=== PATIENT | female | born 1950 | race Caucasian/White ===

== ENCOUNTER 2016-12-09 12:59 | Emergency (ER) | payer MEDICARE, OTHER | END 2016-12-09 15:30 | disposition home or self-care (01) | LOC: D.ER 12:59 | DX: S02.2XXA Fracture of nasal bones, initial encounter for closed fracture (principal); Y04.2XXA Assault by strike against or bumped into by another person, initial encounter; Y93.89 Activity, other specified; Y92.89 Other specified places as the place of occurrence of the external cause; R51 Headache ==

== ENCOUNTER 2016-12-21 05:06 | Day surgery (SDC) | payer MEDICARE, OTHER ==
[~2016-12-21] VITALS: Ht 162.6 cm; Wt 78.6 kg
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
--- NOTE | ~2016-12-21 | OP ---
PATIENT NAME: ERNA WARE MEDICAL RECORD: [id number] :52 LOCATION:[facility] ADMISSION DATE: SURGEON: RYAN PERRY MD DATE OF OPERATION: 12/21/2016 PREOPERATIVE DIAGNOSIS: Displaced nasal fracture. POSTOPERATIVE DIAGNOSIS: Displaced nasal fracture. PROCEDURE: Closed reduction nasal fracture. SURGEON: Ryan Perry MD ANESTHESIA: General. NASAL PACKING: None. SPLINTS: [place] splint externally. COMPLICATIONS: None. DISPOSITION: Recovery stable. DESCRIPTION OF PROCEDURE: She was brought to the operating room and placed in supine position, sedated by anesthesia. The nose was examined, it was cleaned with alcohol. She has a C-shaped deformity with a nasal dorsum deflected to the left side. The [place] elevator in the right side of the nose and digital manipulation was able to mobilize the fracture and pop the nasal dorsum back over to the right side. Then, with small manipulations, get it back to straight and stable. The skin was then cleaned with Mastisol, Steri-Strips were applied. The nose was carefully checked for reduction. A Larry splint was cut to size and placed. Nose was examined and it was straight and looked good. She was awakened and transported to recovery in good condition. No complications. TRANSINT:[id number] Voice Confirmation ID: [id number] DOCUMENT ID: [id number] RYAN PERRY MD CC: [id number] DICTATION DATE: 12/21/16804 ELECTRICAL WIRING LINEMAN: 12/21/16 1003 REG [facility] [address] [place] [address]
[~2016-12-21 05:06] MED LIST: CELEXA40 MG PO; CYCLOBENZAPRINE10 MG PO; HYDROCODONE-APA1 TAB PO; SUDOGEST30 MG PO; TRAZODONE HCL50 MG PO; VITAMIN D5000 UNIT PO; ZANTAC150 MG PO
[2016-12-21 05:59] LABS: BASOPHILS 0.3 % (0-2); EOSINOPHILS 1.9 % (0-7); HEMATOCRIT 38.7 % (36.0-48.0); HEMOGLOBIN 12.5 g/dL (12-16); IMMATURE GRANULOCYTES 0.3 % (0-5); LYMPHOCYTES 48.1 % (15-50); MCH 27.2 pg (26.0-34.0); MCHC 32.3 g/dL (31.0-37.0); MCV 84.1 fL (80.0-100.0); MEAN PLATELET VOLUME 9.9 fL (7.4-10.4); NEUTROPHILS 36.4 % (40-80); PLATELET COUNT 175 10x3/uL (130-400); RDW 12.7 % (11.5-14.5); WBC 3.8 10x3/uL (4.8-10.8)
[2016-12-21 06:12] LABS: APTT 28.4 SECONDS (22.8-39.4); INR 1.05 (0.85-1.17); PROTIME 13.6 SECONDS (11.6-15.0)
[2016-12-21 06:18] VITALS: BP 123/64; Ht 162.6 cm; Wt 78.6 kg
== END 2016-12-21 09:32 | disposition home or self-care (01) ==
LOC: D.OPS 05:06 → D.PAN 07:30 → D.OPS 09:32
PROVIDERS: Anesthesiology
DX: S02.2XXA Fracture of nasal bones, initial encounter for closed fracture (principal); Z01.812 Encounter for preprocedural laboratory examination

== ENCOUNTER → 2017-01-31 21:49 | Outpatient (CLI) | payer MEDICARE, OTHER ==
[2016-12-21 06:18] VITALS: BMI 29.7
== END | disposition home or self-care (01) ==
LOC: D.MAMMO 01-15 08:30
DX: Z85.3 Personal history of malignant neoplasm of breast (principal); Z12.31 Encounter for screening mammogram for malignant neoplasm of breast

== ENCOUNTER → 2017-05-20 14:20 | Outpatient (CLI) | payer MEDICARE, OTHER ==
[2016-12-21 06:18] VITALS: BMI 29.7
== END | disposition home or self-care (01) ==
LOC: D.RAD 14:20
DX: M25.552 Pain in left hip (principal); M25.551 Pain in right hip

== ENCOUNTER → 2017-06-25 07:47 | Outpatient (CLI) | payer MEDICARE, OTHER ==
[2016-12-21 06:18] VITALS: BMI 29.7
== END | disposition home or self-care (01) ==
LOC: D.NM 07:47
DX: M25.551 Pain in right hip (principal)

== ENCOUNTER → 2017-06-28 08:53 | Outpatient (CLI) | payer MEDICARE, OTHER ==
[2016-12-21 06:18] VITALS: BMI 29.7
[2017-06-28 09:41] LABS: BASOPHILS 0.4 % (0-2); EOSINOPHILS 1.3 % (0-7); HEMOGLOBIN 13.2 g/dL (12-16); IMMATURE GRANULOCYTES 0.2 % (0-5); MCH 27.9 pg (26.0-34.0); MCHC 32.2 g/dL (31.0-37.0); MCV 86.7 fL (80.0-100.0); MEAN PLATELET VOLUME 10.1 fL (7.4-10.4); MONOCYTES 6.6 % (2-11); NEUTROPHILS 56.5 % (40-80); PLATELET COUNT 207 10x3/uL (130-400); RBC 4.73 10x6/uL (4.00-5.40); RDW 12.4 % (11.5-14.5); WBC 5.5 10x3/uL (4.8-10.8)
[2017-06-28 09:48] LABS: APPEARANCE HAZY (CLEAR); BACTERIA MODERATE /hpf (NONE SEEN); BILIRUBIN NEGATIVE (NEGATIVE); COLOR YELLOW (YELLOW); GLUCOSE NEGATIVE (NEGATIVE); KETONE NEGATIVE (NEGATIVE); NITRITE NEGATIVE (NEGATIVE); PROTEIN NEGATIVE (NEGATIVE); RED CELLS - URINE 0-5 /hpf (0-5); SPECIFIC GRAVITY 1.015 (1.005-1.020); UROBILINOGEN NORMAL (NORMAL)
[2017-06-28 09:49] LABS: MUCUS >1+ /lpf (NONE SEEN)
[2017-06-28 10:26] LABS: ALBUMIN 3.6 g/dL (3.4-5.0); ANION GAP 8.4 mmol/L (8-16); BILIRUBIN - TOTAL 0.71 mg/dL (0.2-1.3); CALCIUM 8.7 mg/dL (8.5-10.1); CARBON DIOXIDE 30.5 mmol/L (21.0-32.0); CHOL - HDL RATIO 3.1 ratio (2.3-4.1); CREATININE - SERUM 0.9 mg/dL (0.6-1.3); POTASSIUM - SERUM 3.9 mmol/L (3.5-5.1); PROTEIN - SERUM 6.9 g/dL (6.4-8.2); THYROID STIMULATING HORMONE 0.91 uIU/mL (0.36-3.74)
[2017-07-01 11:12] LABS: VITAMIN D 25 HYDROXY 49.6 ng/mL (30.0-100.0)
== END | disposition home or self-care (01) ==
LOC: D.LAB 08:53
PROVIDERS: Family Medicine
DX: M19.90 Unspecified osteoarthritis, unspecified site (principal); M79.7 Fibromyalgia; R30.0 Dysuria; N95.1 Menopausal and female climacteric states; K58.9 Irritable bowel syndrome, unspecified

== ENCOUNTER → 2018-03-18 13:50 | Outpatient (CLI) | payer MEDICARE, OTHER ==
[2016-12-21 06:18] VITALS: BMI 29.7
== END | disposition home or self-care (01) ==
LOC: D.HCCARDIO 13:50
DX: R07.9 Chest pain, unspecified (principal)

== ENCOUNTER → 2018-04-04 08:26 | Outpatient (CLI) | payer MEDICARE, OTHER ==
[2016-12-21 06:18] VITALS: BMI 29.7
== END | disposition home or self-care (01) ==
LOC: D.MRI 08:00
DX: M54.5 Low back pain (principal); R20.2 Paresthesia of skin

== ENCOUNTER → 2018-07-21 11:48 | Outpatient (CLI) | payer MEDICARE, OTHER ==
[2016-12-21 06:18] VITALS: BMI 29.7
[2018-07-21 12:27] LABS: ANION GAP 10.9 mmol/L (8-16); BILIRUBIN - TOTAL 0.8 mg/dL (0.2-1.3); CHOL - HDL RATIO 3.2 ratio (2.3-4.1); POTASSIUM - SERUM 3.9 mmol/L (3.5-5.1); PROTEIN - SERUM 7.6 g/dL (6.4-8.2)
== END | disposition home or self-care (01) ==
LOC: D.LAB 11:48
PROVIDERS: ATTEND Family Medicine
DX: F32.9 Major depressive disorder, single episode, unspecified (principal); M79.7 Fibromyalgia; E78.5 Hyperlipidemia, unspecified; G47.00 Insomnia, unspecified

== ENCOUNTER → 2018-08-12 07:03 | Outpatient (CLI) | payer MEDICARE, OTHER ==
[2016-12-21 06:18] VITALS: BMI 29.7
== END | disposition home or self-care (01) ==
LOC: D.US 07-23 09:00 → D.MRI 07-23 10:00 → D.US 07-25 09:00 → D.MRI 07-25 09:00 → D.US 07-31 08:30
PROVIDERS: ATTEND Internal Medicine Hematology & Oncology
DX: R19.00 Intra-abdominal and pelvic swelling, mass and lump, unspecified site (principal); M25.551 Pain in right hip; M25.552 Pain in left hip

== ENCOUNTER 2018-09-12 09:00 | Outpatient (CLI) | payer MEDICARE, OTHER ==
[2016-12-21 06:18] VITALS: BMI 29.7
== END 2018-09-12 10:00 | disposition home or self-care (01) ==
LOC: D.MAMMO 09:00
PROVIDERS: ATTEND Internal Medicine Medical Oncology
DX: Z12.31 Encounter for screening mammogram for malignant neoplasm of breast (principal)

== ENCOUNTER → 2019-01-07 10:03 | Outpatient (CLI) | payer MEDICARE, OTHER ==
[2016-12-21 06:18] VITALS: BMI 29.7
== END | disposition home or self-care (01) ==
LOC: D.RAD 10:03
PROVIDERS: ATTEND Nurse Practitioner
DX: M25.572 Pain in left ankle and joints of left foot (principal); M25.532 Pain in left wrist

== ENCOUNTER → 2019-06-30 13:46 | Outpatient (CLI) | payer MEDICARE, OTHER ==
[2016-12-21 06:18] VITALS: BMI 29.7
[2019-06-30 14:25] LABS: BASOPHILS 0.1 % (0-2); EOSINOPHILS 2.4 % (0-7); IMMATURE GRANULOCYTES 0.1 % (0-5); LYMPHOCYTES 30.2 % (15-50); MCH 27.3 pg (26.0-34.0); MCHC 31.7 g/dL (31.0-37.0); MEAN PLATELET VOLUME 10.1 fL (7.4-10.4); MONOCYTES 9.3 % (2-11); NEUTROPHILS 57.9 % (40-80); PLATELET COUNT 234 10x3/uL (130-400); RBC 4.77 10x6/uL (4.00-5.40); RDW 12.6 % (11.5-14.5); WBC 7.2 10x3/uL (4.8-10.8)
== END | disposition home or self-care (01) ==
LOC: D.RAD 13:46
PROVIDERS: ATTEND Family Medicine
DX: R09.89 Other specified symptoms and signs involving the circulatory and respiratory systems (principal); R05 Cough; R50.9 Fever, unspecified

== ENCOUNTER → 2019-08-25 11:39 | Outpatient (CLI) | payer MEDICARE, OTHER ==
[2016-12-21 06:18] VITALS: BMI 29.7
== END | disposition home or self-care (01) ==
LOC: D.CT 11:30
PROVIDERS: ATTEND Family Medicine
DX: R05 Cough (principal); R68.89 Other general symptoms and signs

== ENCOUNTER 2019-09-16 09:00 | Outpatient (CLI) | payer MEDICARE, OTHER ==
[2016-12-21 06:18] VITALS: BMI 29.7
== END 2019-09-16 10:00 | disposition home or self-care (01) ==
LOC: D.MAMMO 09:00
PROVIDERS: ATTEND Internal Medicine Medical Oncology
DX: Z12.31 Encounter for screening mammogram for malignant neoplasm of breast (principal)

== ENCOUNTER → 2019-11-30 13:47 | Outpatient (CLI) | payer MEDICARE, OTHER ==
[2016-12-21 06:18] VITALS: BMI 29.7
[2019-11-30 14:34] LABS: BASOPHILS 0.2 % (0-2); HEMATOCRIT 43.8 % (36.0-48.0); HEMOGLOBIN 13.8 g/dL (12-16); IMMATURE GRANULOCYTES 0.2 % (0-5); MCH 27.3 pg (26.0-34.0); MCHC 31.5 g/dL (31.0-37.0); MCV 86.7 fL (80.0-100.0); MEAN PLATELET VOLUME 10.2 fL (7.4-10.4); MONOCYTES 8.6 % (2-11); PLATELET COUNT 207 10x3/uL (130-400); RBC 5.05 10x6/uL (4.00-5.40); RDW 12.8 % (11.5-14.5); WBC 6.1 10x3/uL (4.8-10.8)
[2019-11-30 15:39] LABS: ERYTHROCYTE SEDIMENTATION RATE 3 mm/hr (0-30)
[2019-11-30 16:00] LABS: ALBUMIN 3.7 g/dL (3.4-5.0); ANION GAP 11.1 mmol/L (8-16); BILIRUBIN - TOTAL 0.67 mg/dL (0.2-1.3); CALCIUM 8.4 mg/dL (8.5-10.1); CARBON DIOXIDE 29.9 mmol/L (21.0-32.0); CHOL - HDL RATIO 3.3 ratio (2.3-4.1); CREATININE - SERUM 1.1 mg/dL (0.6-1.3); LDL-HDL RATIO 1.9 ratio (1.5-3.5); PROTEIN - SERUM 6.7 g/dL (6.4-8.2); THYROID STIMULATING HORMONE 1.74 uIU/mL (0.36-3.74)
== END | disposition home or self-care (01) ==
LOC: D.LAB 13:47
PROVIDERS: ATTEND Family Medicine
DX: M19.90 Unspecified osteoarthritis, unspecified site (principal); Z00.00 Encounter for general adult medical examination without abnormal findings; F34.1 Dysthymic disorder; K21.9 Gastro-esophageal reflux disease without esophagitis; G47.00 Insomnia, unspecified

== ENCOUNTER → 2020-06-24 10:49 | Outpatient (CLI) | payer MEDICARE, OTHER ==
[2016-12-21 06:18] VITALS: BMI 29.7
== END | disposition home or self-care (01) ==
LOC: D.CT 10:49
PROVIDERS: ATTEND Specialist
DX: R19.07 Generalized intra-abdominal and pelvic swelling, mass and lump (principal)